=== PATIENT | female | born 1985 | race American Indian/Alaskan Native ===

== ENCOUNTER 2019-08-29 18:18 | Inpatient (IN) | payer OTHER ==
[2019-08-29] MEDS ORDERED: TERBUTALINE 1 MG/1 ML INJ IVP PRN (19:32)
[2019-08-29] MEDS ORDERED: AMPICILLIN/NS 2 GM/100 ML 2 GM/100 ML BAG IV ONE (19:32)
[2019-08-29] MEDS ORDERED: fentaNYL 100 MCG/2 ML INJ IV PRN (19:32)
[2019-08-29] MEDS ORDERED: MINERAL OIL 30 ML ORAL LIQD PO PRN (19:32)
[2019-08-29] MEDS ORDERED: ePHEDrine SULFATE 50 MG/1 ML INJ IV PRN (19:32)
[2019-08-29] MEDS ORDERED: ONDANSETRON 4 MG/2 ML INJ IV PRN ×2 (19:32→21:14)
[2019-08-29] MEDS ORDERED: TERBUTALINE 1 MG/1 ML INJ SUB-Q PRN (19:32)
[2019-08-29] MEDS ORDERED: BUTORPHANOL 2 MG/1 ML INJ IV PRN (19:32)
--- NOTE | 2019-08-29 19:39 | History and Physical Report ---
History of Present Illness Date of examination: 08/29/19 Chief complaint: Labor History of present illness: Pt is a 33yo BF EDC 08/27/19; EGA 40 2/7 weeks presents to L&D complaining of RUC's q 3-5 mins. She received care at [facility] since 12 weeks and course has been unremarkable except for history of multiple losses. records are available, but GBS is Negative. Past History Past Medical History: no pertinent history Past Surgical History: no surgical history Social history: no significant social history, - Obstetrical History Expected Date of Delivery: 08/27/19 Actual Gestation: 40 Week(s) 2 Day(s) : 5 Medications and Allergies Allergies Allergy/AdvReac Type Severity Reaction Status Date / Time No Known Allergies Allergy Verified 08/29/19 19:29 Review of Systems All systems: negative - Vital Signs Vital signs: Vital Signs Temp Pulse BP 98.2 F 98 H 127/71 08/29/19 18:45 08/29/19 18:45 08/29/19 18:45 Temp Pulse Resp BP Pulse Ox 98.2 F 98 H 127/71 08/29/19 18:45 08/29/19 18:45 08/29/19 18:45 - Physical Exam Breasts: Positive: deferred Cardiovascular: Regular rate Lungs: Positive: Clear to auscultation Abdomen: Positive: normal appearance Genitourinary (Female): Positive: normal external genitalia Uterus: Positive: enlarged Extremities: Positive: normal - Obstetrical FHR: category 1 Uterine Contraction Monitor Mode: External Cervical Dilatation: 5 (per nurse) Cervical Effacement Percentage: 80 (per nurse) station: -2 Uterine Contraction Pattern: Regular Uterine Tone Measurement Phase: Contraction Uterine Contraction Intensity: Strong/Firm Results Result Diagrams: 08/29/19 19:25 All other labs normal. Assessment and Plan - Patient Problems (1) 40 weeks gestation of Onset Date: 08/29/19 Current Visit: Yes Status: Acute Plan to address problem: A: IUP @ 40 2/7 weeks in labor P: Admit to L&D for expectant vaginal delivery
[2019-08-29 19:47] LABS: Hematocrit 38.1 % (30.3-42.9); Hemoglobin 12.9 gm/dl (10.1-14.3); Mean Corpuscular HGB Conc 34 % (30-34); Mean Corpuscular Volume 91 fl (79-97); Platelet Count 151 K/mm3 (140-440); Red Blood Count 4.19 M/mm3 (3.65-5.03); Red Cell Distribution Width 14.3 % (13.2-15.2)
[2019-08-29] MEDS ORDERED: LIDOCAINE (2%) 20 MG/1 ML VIAL 20 ML MDV INFILTRATI ONE (20:00)
[2019-08-29] MEDS ORDERED: LACTATED RINGERS 1,000 ML IV SCH (20:00)
[2019-08-29] MEDS ORDERED: OXYTOCIN DRIP 30 UNITS/500 ML BAG IV SCH ×2 (20:00)
[2019-08-29] MEDS ORDERED: OXYTOCIN 20 UNIT/1000ML DRIP 20 UNITS/1,000 ML BAG IV SCH ×2 (20:00→22:00)
--- NOTE | 2019-08-29 21:13 | Procedure Note ---
OB Delivery Note - Delivery Date of Delivery: 08/29/19 Surgeon: KIRK SHIELDS Estimated blood loss: 100cc - Vaginal Delivery presentation: vertex Delivery position: OA Intrapartum events: meconium, precipitous labor- <3hr Delivery induction: none Delivery augmentation: rupture of membranes Delivery monitor: external FHT, external uterine Route of delivery: Delivery placenta: spontaneous Delivery cord: 3 umbilical vessels Episiotomy: none Delivery laceration: 1st degree (perineal) Delivery repair: vicryl Anesthesia: local Delivery comments: Infant delivered OA and placed on Mom's chest for [id number] bonding and delayed cord clamping, cut by Dad - A at 1 minute: 8 at 5 minutes: 9 Gender: Female (3571gms)
[2019-08-29] MEDS ORDERED: BENZOCAINE/MENTHOL 20/0.5% TOP SPRAY 56 GM TP PRN (21:14)
[2019-08-29] MEDS ORDERED: LANOLIN/ZINC/DIMETHICONE (LANSINOH) 7 GM TP PRN (21:14)
[2019-08-29] MEDS ORDERED: diphenhydrAMINE 25 MG CAP PO PRN (21:14)
[2019-08-29] MEDS ORDERED: ACETAMINOPHEN 325 MG TAB PO PRN (21:14)
[2019-08-29] MEDS ORDERED: PROMETHAZINE 25 MG TAB PO PRN (21:14)
[2019-08-29] MEDS ORDERED: PROMETHAZINE 25 MG RECT SUPP PR PRN (21:14)
[2019-08-29] MEDS ORDERED: MAGNESIUM HYDROXIDE (MOM) ORAL LIQD UDC PO PRN (21:14)
[2019-08-29] MEDS ORDERED: WITCH HAZEL/ GLYCERIN PAD TP PRN (21:14)
[2019-08-29] MEDS ORDERED: AMPICILLIN/NS 1 GM/50 ML 1 GM/50 ML BAG IV SCH (23:33)
[2019-08-30] MEDS: HYDROcodone/ACETAMINOPHEN 5-325 MG TAB PO PRN ×4 (00:23→21:56)
[2019-08-30] MEDS: IBUPROFEN 600 MG TAB PO SCH ×3 (05:03→17:28)
[2019-08-30] MEDS ORDERED: MEASLES, MUMPS & RUBELLA 12,500 UNIT/0.5 ML VACCINE SUB-Q ONE (06:00)
[2019-08-30] MEDS ORDERED: TETANUS,DIPH,PERTUSS(ACELL) VACCINE 0.5 ML SYRINGE IM ONE (06:00)
[2019-08-30] MEDS: DOCUSATE SODIUM 100 MG CAP PO SCH ×2 (09:24→21:56)
[2019-08-30] MEDS: PRENATAL VIT27-FE FUMARATE-FOLIC ACID VIT TAB PO SCH (09:24)
[2019-08-30] MEDS: FERROUS SULFATE 325 MG TAB PO SCH ×2 (09:24→21:56)
[2019-08-30 10:10] LABS: Hematocrit 32.8 % (30.3-42.9); Hemoglobin 11.1 gm/dl (10.1-14.3)
--- NOTE | 2019-08-30 13:09 | Progress Note ---
Assessment and Plan - Patient Problems (1) 40 weeks gestation of Onset Date: 08/29/19 Current Visit: Yes Status: Resolved (2) (normal spontaneous vaginal delivery) Onset Date: 08/30/19 Current Visit: Yes Status: Resolved Plan to address problem: A: S/P - PPD #1 Doing well Asymptomatic anemia - stable P: May go home tomorrow. Subjective - Subjective Date of service: 08/30/19 Principal diagnosis: s/p - PPD #1 Interval history: Pt is feeling well with complaints of hemorrhoids, and bleeding improved. Patient reports: appetite normal, voiding normally, pain well controlled, flatus, ambulating normally, no dizzy ambulation, no nauseated [place]: doing well, nursing well Objective - Vital Signs Latest vital signs: Vital Signs Temp Pulse Resp BP BP Pulse Ox 08/30/19 12:02 98.1 F 71 20 113/69 98 08/30/19 07:32 97.9 F 65 16 109/58 97 08/30/19 04:55 98.3 F 72 20 111/64 100 08/29/19 23:15 98.7 F 76 18 120/65 08/29/19 21:17 88 113/56 08/29/19 21:12 89 112/59 08/29/19 21:07 98 H 115/58 08/29/19 21:02 85 130/64 08/29/19 18:45 98.2 F 98 H 127/71 Intake and Output 08/29/19 08/30/19 08/30/19 22:59 06:59 14:59 Intake Total 240 Balance 240 Intake: Oral 240 Other: Total, Intake Amount 240 # Voids Void 1 Weight 74.389 kg Estimated Blood Loss 100 - Exam Breasts: Present: deferred Abdomen: Present: normal appearance, soft Uterus: Present: normal, firm, fundal height below umbilicus - Labs Labs: Laboratory Tests 08/29/19 08/29/19 08/29/19 19:00 19:25 19:25 WBC 10.0 RBC 4.19 Hgb 12.9 Hct 38.1 MCV 91 MCH 31 MCHC 34 RDW 14.3 Plt Count 151 Syphilis IgG Antibody Non-reactive Blood Type O POSITIVE Antibody Screen Negative 08/30/19 09:54 WBC RBC Hgb 11.1 Hct 32.8 MCV MCH MCHC RDW Plt Count Syphilis IgG Antibody Blood Type Antibody Screen
[2019-08-30] MEDS: PE/MO/PET,WH 10 APPLIC/28 GM TUBE PR PRN (17:26)
[2019-08-31] MEDS: IBUPROFEN 600 MG TAB PO SCH ×2 (00:10→10:19)
[2019-08-31] MEDS: PE/MO/PET,WH 10 APPLIC/28 GM TUBE PR PRN ×2 (00:10→06:40)
[2019-08-31] MEDS: HYDROcodone/ACETAMINOPHEN 5-325 MG TAB PO PRN (06:39)
[2019-08-31] MEDS: FERROUS SULFATE 325 MG TAB PO SCH (10:18)
[2019-08-31] MEDS: DOCUSATE SODIUM 100 MG CAP PO SCH (10:18)
[2019-08-31] MEDS: PRENATAL VIT27-FE FUMARATE-FOLIC ACID VIT TAB PO SCH (10:18)
--- NOTE | 2019-08-31 11:00 | Discharge Summary ---
Providers - Providers Date of Admission: 08/29/19 21:45 Date of discharge: 08/31/19 Attending physician: KIRK SHIELDS Primary care physician: KIRK SHIELDS Hospitalization Reason for admission: active labor, IUP at term Delivery: Episiotomy: none Laceration: 1st degree Other procedures: none complications: none Discharge diagnosis: IUP at term delivered [place] baby: female Hospital course: Unremarkable. Condition at discharge: Good Disposition: DC-01 TO HOME OR SELFCARE - Discharge Diagnoses (1) 40 weeks gestation of Status: Resolved (2) (normal spontaneous vaginal delivery) Status: Resolved Plan - Discharge Medications Prescriptions: Ferrous Sulfate [Feosol 325 MG tab] 325 mg PO BID #60 tablet Ibuprofen [Motrin 600 MG tab] 600 mg PO Q6HR #30 tablet Vit-Fe Fumar-FA [ Vitamin] 1 each PO QDAY #30 tablet - Provider Discharge Summary Activity: routine, no sex for 6 weeks, no heavy lifting 4 weeks, no strenuous exercise Diet: routine Instructions: routine Additional instructions: [] Smoking cessation referral if applicable(refer to patient education folder for contact #) [] Refer to [facility] Booklet Call your doctor immediately for: * Fever > 100.5 * Heavy vaginal bleeding ( >1 pad per hour) * Severe persistent headache * Shortness of breath * Reddened, hot, painful area to leg or breast * Drainage or odor from incision. * Keep incision clean and dry at all times and follow doctor's instructions regarding bathing/showering - Follow up plan Follow up: KIRK SHIELDS MD [Primary Care Provider] - 6 Weeks MANDY COLEMAN NP [Referring] - 6 Weeks
[2019-08-31] MEDS ORDERED: FLU VACC QUAD 2019-20 (3 YR UP)/PF 60 MCG/0.5 ML SYRINGE IM ONE (12:00)
[2019-08-31 16:51] VITALS: BP 123/70
== END 2019-08-31 17:00 | disposition home or self-care (01) | DRG 807 ==
LOC: TRG 18:18 → LD 19:05 → TRG 21:39 → LD 21:45 → OB 23:19
PROVIDERS: ADMIT Obstetrics & Gynecology; ATTEND Obstetrics & Gynecology
PROC: 10E0XZZ Delivery of Products of Conception, External Approach (ICD-10-PCS; principal; 2019-08-29)
PROC: 0HQ9XZZ Repair Perineum Skin, External Approach (ICD-10-PCS; 2019-08-29)
PROC: 3E0234Z Introduction of Serum, Toxoid and Vaccine into Muscle, Percutaneous Approach (ICD-10-PCS; 2019-08-30)
PROC: 3E0134Z Introduction of Serum, Toxoid and Vaccine into Subcutaneous Tissue, Percutaneous Approach (ICD-10-PCS; 2019-08-30)
DX: O77.0 Labor and delivery complicated by meconium in amniotic fluid (principal); Z37.0 Single live birth; O62.3 Precipitate labor; O70.0 First degree perineal laceration during delivery; Z3A.40 40 weeks gestation of pregnancy; Z23 Encounter for immunization; O90.81 Anemia of the puerperium
CPT/HCPCS: 36415; 85014; 85018; 85027; 86592; 86850; 86900; 86901; 90686; 96374; G0378; J0290; J3010

== ENCOUNTER 2021-02-22 23:11 | Inpatient (IN) | payer OTHER ==
[2021-02-23] MEDS ORDERED: LACTATED RINGERS 1,000 ML ONE ×2 (01:08→02:02)
[2021-02-23] MEDS ORDERED: AMPICILLIN/NS 2 GM/100 ML 2 GM/100 ML BAG IV ONE (01:42)
[2021-02-23 01:58] LABS: Hematocrit 33.8 % (30.3-42.9); Hemoglobin 11.9 gm/dl (10.1-14.3); Mean Corpuscular HGB Conc 35 % (30-34); Mean Corpuscular Volume 88 fl (79-97); Platelet Count 164 K/mm3 (140-440); Red Blood Count 3.83 M/mm3 (3.65-5.03); Red Cell Distribution Width 14.4 % (13.2-15.2)
[2021-02-23] MEDS ORDERED: ePHEDrine SULFATE 50 MG/1 ML INJ ONE (02:01)
[2021-02-23] MEDS ORDERED: NALOXONE 2 MG/2 ML INJ IV PRN (02:02)
[2021-02-23] MEDS ORDERED: ePHEDrine SULFATE 50 MG/1 ML INJ IV PRN ×2 (02:02→06:09)
--- NOTE | 2021-02-23 02:02 | Anesthesia Consultation ---
Anesthesia Consult and Med Hx Date of service: 02/23/21 - Airway Anesthetic Teeth Evaluation: Good ROM Head & Neck: Adequate Mental/Hyoid Distance: Adequate Mallampati Class: Class II Intubation Access Assessment: Probably Good - Pulmonary Exam CTA: Yes - Cardiac Exam Cardiac Exam: RRR - Pre-Operative Health Status ASA Pre-Surgery Classification: ASA2 Proposed Anesthetic Plan: Epidural - Pulmonary Hx Asthma: No COPD: No Hx Pneumonia: No - Cardiovascular System Hx Hypertension: No - Central Nervous System Hx Seizures: No Hx Psychiatric Problems: No - Endocrine Hx Renal Disease: No Hx End Stage Renal Disease: No Hx Hypothyroidism: No Hx Hyperthyroidism: No - Hematic Hx Anemia: No Hx Sickle Cell Disease: No - Other Systems Hx Alcohol Use: No
[2021-02-23] MEDS ORDERED: OXYTOCIN DRIP 30,000 MILLIUNITS/500 ML BAG IV ONE (02:18)
--- NOTE | 2021-02-23 02:19 | Progress Note ---
Labor Epidural - Labor Epidural Start Time: 02:09 Stop Time: 02:13 Performed by:: ROSIE LEVINE Procedure: Patient is requesting epidural for labor pain. H&P, and labs reviewed. Procedure explained, questions answered, consent obtained. Patient in sitting position with blood pressure cuff and pulse ox on and working. Timeout performed immediately before start of procedure. Sterile chlorahexadine 0.5% prep/drape. 3 mL 1% lidocaine skin wheal at L[3]-L[4]. 18-gauge [employer] and Aerosp[employer] epidural needle advanced to [id number] with saline at [7] cm. 27-gauge spinal needle advanced until clear, free-flowing CSF. Intrathecal dexmedetomidine [5] mcg administered and needle removed. Epidural catheter advanced to [12] cm, negative aspiration for blood and csf, negative test dose 3 ml 1.5% lidocaine with epinephrine. Sterile steri-strips and tegaderm applied, followed by tape reinforcement. Patient tolerated procedure well.
[2021-02-23] MEDS ORDERED: fentaNYL-BUPIV 2 MCG/ML-0.125% 200 MCG/100 ML BAG EPIDURAL SCH (03:00)
--- NOTE | 2021-02-23 03:08 | History and Physical Report ---
History of Present Illness Date of examination: 02/23/21 Date of admission: 02/23/2021 Chief complaint: contractions History of present illness: 35-year-old -0-3-2 at 39+2 weeks who presents with regular uterine contractions. records are not available for review. Her GBS status is unknown. course is complicated by advanced maternal age. Past History Past Medical History: no pertinent history Past Surgical History: no surgical history Social history: - Obstetrical History Expected Date of Delivery: 02/27/21 Actual Gestation: 39 Week(s) 3 Day(s) : 6 Para: 2 Hx # Term Pregnancies: 2 Number of Pregnancies: 0 Spontaneous Abortions: 3 Induced : 0 Number of Living Children: 2 Medications and Allergies Allergies Allergy/AdvReac Type Severity Reaction Status Date / Time No Known Allergies Allergy Verified 02/22/21 23:47 Home Medications Medication Instructions Recorded Confirmed Last Taken Type Ferrous Sulfate [Feosol 325 MG tab] 325 mg PO BID #60 tablet 08/31/19 Unknown Rx Ibuprofen [Motrin 600 MG tab] 600 mg PO Q6HR #30 tablet 08/31/19 Unknown Rx Vit-Fe Fumar-FA [ 1 each PO QDAY #30 tablet 08/31/19 Unknown Rx Vitamin] Active Meds: Active Medications Ephedrine Sulfate (Ephedrine Sulfate 50 Mg/1 Ml Inj) 10 mg IV Q2M PRN PRN Reason: Hypotension Fentanyl/Bupivacaine/Sodium Chlor (Fentanyl-Bupiv 2 Mcg/Ml-0.125%) 200 mcg in 100 mls @ 12 mls/hr EPIDURAL TITR ROMÁN; Protocol Naloxone HCl (Naloxone 2 Mg/2 Ml Inj) 0.2 mg IV Q5M PRN PRN Reason: Respiratory sedation Review of Systems All systems: negative Genitourinary: contractions - Vital Signs Vital signs: Vital Signs Pulse BP 75 131/75 02/23/21 01:30 02/23/21 01:30 Temp Pulse Resp BP Pulse Ox 77 118/66 99 02/23/21 02:58 02/23/21 02:22 02/23/21 02:58 - Physical Exam Breasts: Positive: deferred Cardiovascular: Regular rate Lungs: Positive: Clear to auscultation Abdomen: Positive: normal appearance Results Result Diagrams: 02/23/21 01:29 Abnormal lab results 05/29/21 Range/Units 01:29 MCHC 35 H (30-34) % All other labs normal. Assessment and Plan - Patient Problems (1) Active labor at term Current Visit: Yes Status: Acute Plan to address problem: admit to L&D initiate antibiotics
[2021-02-23] MEDS ORDERED: WITCH HAZEL/ GLYCERIN PAD TP PRN (03:10)
[2021-02-23] MEDS ORDERED: diphenhydrAMINE 25 MG CAP PO PRN (03:10)
[2021-02-23] MEDS ORDERED: HYDROcodone/ACETAMINOPHEN 5-325 MG TAB PO PRN (03:10)
[2021-02-23] MEDS ORDERED: LANOLIN/ZINC/DIMETHICONE (LANSINOH) 7 GM TP PRN (03:10)
[2021-02-23] MEDS ORDERED: MAGNESIUM HYDROXIDE (MOM) ORAL LIQD UDC PO PRN (03:10)
[2021-02-23] MEDS ORDERED: ONDANSETRON 4 MG/2 ML INJ IV PRN (03:10)
[2021-02-23] MEDS ORDERED: PROMETHAZINE 25 MG TAB PO PRN (03:10)
[2021-02-23] MEDS ORDERED: PROMETHAZINE 25 MG RECT SUPP PR PRN (03:10)
[2021-02-23] MEDS ORDERED: ACETAMINOPHEN 325 MG TAB PO PRN (03:10)
--- NOTE | 2021-02-23 03:10 | Procedure Note ---
OB Delivery Note - Delivery Date of Delivery: 02/23/21 Surgeon: MARICEL TAN Estimated blood loss: other (150ml) - Vaginal Delivery presentation: vertex Delivery position: OA Intrapartum events: meconium Delivery monitor: external FHT, external uterine Route of delivery: Delivery placenta: spontaneous Delivery cord: 3 umbilical vessels Episiotomy: none Delivery laceration: none Anesthesia: none - Infant A at 1 minute: 8 at 5 minutes: 9 Gender: Female (weight 6lbs 14oz)
[2021-02-23] MEDS ORDERED: LACTATED RINGERS 1,000 ML IV SCH (06:15)
[2021-02-23] MEDS ORDERED: OXYTOCIN DRIP 30 UNITS/500 ML BAG IV SCH (07:00)
[2021-02-23] MEDS: IBUPROFEN 600 MG TAB PO SCH ×3 (08:17→17:47)
--- NOTE | 2021-02-23 09:36 | Post Anesthesia Evaluation ---
- Post Anesthesia Evaluation Patient Participated: Yes Airway Patent: Yes Stable Respiratory Function: Yes Nausea/Vomiting: No Temp > 96.8F: Yes Pain Manageable: Yes Adequeate Hydration: Yes Anesthesia Complications: No Block Receding Appropriately: Yes
[2021-02-23 10:06] LABS: Hematocrit 33.2 % (30.3-42.9); Hemoglobin 11.4 gm/dl (10.1-14.3)
[2021-02-24] MEDS: IBUPROFEN 600 MG TAB PO SCH ×4 (07:06→23:34)
--- NOTE | 2021-02-24 10:51 | Progress Note ---
Assessment and Plan - Patient Problems (1) Active labor at term Current Visit: Yes Status: Acute Plan to address problem: discharge home precautions for social distancing (2) SARS-CoV-2 positive Current Visit: Yes Status: Acute Subjective - Subjective Date of service: 02/24/21 Interval history: Patient tested positive for covid. She is without symptoms Patient reports: appetite normal, voiding normally, pain well controlled : doing well Objective - Vital Signs Latest vital signs: Vital Signs Temp Pulse Resp BP BP Pulse Ox 02/24/21 08:59 71 16 104/69 97 02/24/21 00:04 18 02/23/21 23:14 98.2 F 75 20 116/69 98 02/23/21 23:11 18 02/23/21 16:15 97.9 F 77 18 122/70 97 02/23/21 12:25 98.6 F 71 18 109/62 97 Intake and Output 02/23/21 02/24/21 02/24/21 22:59 06:59 14:59 Intake Total 240 Output Total 600 Balance -360 Intake: Oral 240 Output: Urine 600 Void 600 Other: Total, Intake Amount 240 Total, Output Amount 600 # Voids Void 3 1 - Labs Labs: Abnormal lab results 02/23/21 Range/Units Unknown Coronavirus (PCR) Positive A (Negative)
--- NOTE | 2021-02-24 10:52 | Discharge Summary ---
Providers - Providers Date of Admission: 02/23/21 03:10 Date of discharge: 02/24/21 Attending physician: MARICEL TAN Primary care physician: MARICEL TAN Hospitalization Reason for admission: active labor Delivery: Discharge diagnosis: IUP at term delivered Hospital course: Patient admitted in labor. Had . complicated by covid Condition at discharge: Good Disposition: DC-01 TO HOME OR SELFCARE - Discharge Diagnoses (1) Active labor at term Status: Acute (2) SARS-CoV-2 positive Status: Acute Plan - Discharge Medications Prescriptions: Ibuprofen [Motrin] 800 mg PO Q8HR PRN #30 tablet PRN Reason: Pain , Severe (7-10) HYDROcodone/APAP 5-325 [[place] 5/325] 1 each PO Q6HR PRN #15 tablet PRN Reason: Pain - Provider Discharge Summary Activity: no sex for 6 weeks, no heavy lifting 4 weeks, no strenuous exercise Diet: routine Instructions: routine Additional instructions: [] Smoking cessation referral if applicable(refer to patient education folder for contact #) [] Refer to [facility] Booklet Call your doctor immediately for: * Fever > 100.5 * Heavy vaginal bleeding ( >1 pad per hour) * Severe persistent headache * Shortness of breath * Reddened, hot, painful area to leg or breast * schedule visit in 4 weeks - Follow up plan Forms: [facility] Discharge Summary
[2021-02-25] MEDS: IBUPROFEN 600 MG TAB PO SCH (05:10)
[2021-02-25 14:28] VITALS: BP 112/70
== END 2021-02-25 14:30 | disposition home or self-care (01) | DRG 805 ==
LOC: TRG 23:11 → APU 23:13 → LD 02-23 01:24 → TRG 02-23 03:10 → OB 02-23 06:34
PROVIDERS: ADMIT Obstetrics & Gynecology; ATTEND Obstetrics & Gynecology
PROC: 10E0XZZ Delivery of Products of Conception, External Approach (ICD-10-PCS; principal; 2021-02-23)
PROC: 3E0R3BZ Introduction of Anesthetic Agent into Spinal Canal, Percutaneous Approach (ICD-10-PCS; 2021-02-23)
PROC: 00HU33Z Insertion of Infusion Device into Spinal Canal, Percutaneous Approach (ICD-10-PCS; 2021-02-23)
DX: O98.52 Other viral diseases complicating childbirth (principal); U07.1 COVID-19; Z37.0 Single live birth; O77.0 Labor and delivery complicated by meconium in amniotic fluid; Z3A.39 39 weeks gestation of pregnancy
CPT/HCPCS: 36415; 85014; 85018; 85027; 86592; 86850; 86900; 86901; G0378; A6250; J0290; J7120; U0003